=== PATIENT | female | born 2000 | race Asian ===

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

== ENCOUNTER → 2024-02-02 | Outpatient (CLI) | payer OTHER | LOC: COL.VAS 11:47 | DX: R42 Dizziness and giddiness (principal) ==